=== PATIENT | female | born 1985 | race Caucasian/White ===

== ENCOUNTER 2016-06-10 13:08 | Outpatient (CLI) ==
[2016-03-23 19:04] VITALS: BMI 38.9
[2016-06-10 15:35] LABS: FLU INTERNAL QC INTERNAL QC VALID; RAPID FLU A NEGATIVE (NEGATIVE); RAPID FLU B NEGATIVE (NEGATIVE)
== END 2016-06-10 13:09 | disposition home or self-care (01) ==
LOC: LAB 13:08
PROVIDERS: ATTEND Nurse Practitioner Family
DX: R52 Pain, unspecified (principal); J02.9 Acute pharyngitis, unspecified
CPT/HCPCS: 87804; 87880

== ENCOUNTER 2016-08-15 11:13 | Outpatient (CLI) ==
[2016-03-23 19:04] VITALS: BMI 38.9
--- NOTE | 2016-08-15 11:53 | DI ---
EXAM: Five views of the lumbar spine. History: Lower back pain. Findings / impression: No acute fracture. L5 pars defects possibly bilateral with grade 1 anteroli sthesis of L5 on S1. Moderate degree of facet hypertrophy is seen at L5-S1.
== END 2016-08-15 11:14 | disposition home or self-care (01) ==
LOC: RAD 11:13
PROVIDERS: ATTEND Nurse Practitioner Family
DX: M54.5 Low back pain (principal)

== ENCOUNTER 2016-08-17 14:02 | Outpatient (CLI) ==
[2016-03-23 19:04] VITALS: BMI 38.9
--- NOTE | 2016-08-17 15:41 | MRI ---
EXAM: MRI lumbar spine without IV contrast. DATE: 08/17/2016. HISTORY: Low back pain. TECHNIQUE: Sagittal and axial T1W and T2W sequences of the lumbar spine along with sagittal IR and coronal T2W sequences were obtained using 1.2 Delmis magnet. No IV contrast. COMPARISON: LS spine series 08/15/2016. FINDINGS: There are six dnd-ovj-wahdfic lumbar type vertebra. No previous chest x-ray or T-spine s eries is available to count the number of thoracic vertebra with paired ribs. On previous lumbar sp ine study, the first xmd-vde-pghyxyu lumbar vertebra is apparently assumed to be T12. In keeping wit h the previous numbering system, the first sia-uqu-paegnic vertebra will be referred to as T12. If f eatures thoracic spine series, chest CT, or thoracic MRI confirm twelfth thoracic vertebra exclusive of this wpr-beo-heirnyb vertebra, the numbering system could be altered for future studies. There is no lumbar scoliosis. A 4.4 mm anterior subluxation of L5 relative to L4 is due to facet di sease. A 3 mm anterior subluxation of L5 relative to S1 is due to bilateral L5 pars defects. No ot her subluxation, acute fracture, osseous malignancy, or other pars interarticularis defect is detect ed. Lumbar vertebra are normal in height. Bone marrow signal is normal. Small anterior osteophyte s noted at L1-2 and L5-S1. Disc desiccation and mild disc space narrowing is evident at L1-2 and L4 -5. No sacral fracture or stress reaction is demonstrated. SI joints are unremarkable. Conus medu llaris terminates at T12. Visible spinal cord is normal. No retroperitoneal lymphadenopathy, paraspinal mass, or aortic aneurysm is detected. Paraspinal mus culature is symmetric bilaterally. Visible portions of the liver, spleen, adrenal glands and kidney s are limited by breathing motion artifacts, but reveal no definitive abnormality. Segmental analysis: T11-12: Normal. T12-L1: Transitional T12. Otherwise normal. L1-2: Small bilobed posterior disc bulge causes triangulation of the canal. Each foramen is patent . L2-3: Normal. L3-4: Minor posterior to foraminal disc bulge and minor facet disease cause mild central canal sten osis and minor left foraminal narrowing. L4-5: Mild anterior subluxation of L5, small pseudodisc bulge, and mild facet arthropathy cause mil d/moderate bilateral foraminal narrowing. No central canal stenosis. L5-S1: Mild anterior subluxation of L5, small pseudodisc bulge, bilateral L5 pars defects with hype rtrophic changes, and mild facet arthropathy cause marked bilateral foraminal stenoses with mild com pression of each L5 nerve root in the foramen. No central canal stenosis. IMPRESSIONS: 1. Five classic lumbar vertebra. Transitional T12 vertebra (with lumbar-type transverse processes) . 2. Lumbar spine mild spondylosis, mild facet arthropathy, bilateral L5 pars defects with associated subluxation, and multilevel DDD. 3. Multilevel foraminal stenoses. Each L5 nerve root is compressed in the foramen, and may be sour mani for pain/radiculopathy. 4. Triangulation of canal at L1-2. Mild central stenosis at L3-4.
== END 2016-08-17 14:03 | disposition home or self-care (01) ==
LOC: RAD 14:02
PROVIDERS: ATTEND Nurse Practitioner Family
DX: M54.5 Low back pain (principal); R93.7 Abnormal findings on diagnostic imaging of other parts of musculoskeletal system

== ENCOUNTER 2016-10-13 09:50 | Outpatient (CLI) ==
[2016-03-23 19:04] VITALS: BMI 38.9
--- NOTE | 2016-10-13 10:30 | DI ---
Exam: Eight x-rays of the lumbar spine. Comparison: MRI performed 08/17/2016. Reason for exam: Displacement of the lumbar disc. FINDINGS: No acute fracture. The vertebral body heights are well maintained. There is approximately 6.5 mm of anterior listhesis of L5 on S1 on the lateral image.. On flexion imaging, there is approximately 6.3 mm of anterior listhesis of L5 on S1. On extension imaging, here is approximately 4.7 mm of anterior listhesis of L5 on S1. Mild degenerative disease is seen with osteophyte formation. Impression: 1. Grade 1 anterior listhesis of L5 on S1 with decreased listhesis seen on the extension x-ray. Kiah ging findings suggest motion at this level. 2. No acute fracture is seen.
== END 2016-10-13 09:51 | disposition home or self-care (01) ==
LOC: RAD 09:50
PROVIDERS: ATTEND Nurse Practitioner
DX: M43.10 Spondylolisthesis, site unspecified (principal); M51.26 Other intervertebral disc displacement, lumbar region

== ENCOUNTER 2016-10-17 13:00 | Outpatient (RCR) ==
[2016-03-23 19:04] VITALS: BMI 38.9
--- NOTE | 2016-10-14 16:34 | RS.OPPTEV2 ---
Date of Note: 10/13/16 Visit #: 1 Date of Evaluation: 10/13/16 Payer Source: Medicaid Treatment Diagnosis: Low Back pain, Spondylolisthesis, lumbar disc displacement History of Condition/Mechanism of Injury:: Patient reports increased low back pain and right LE pain since starting a new job in May. States she has had a history her back bothering her, but prolonged standing and walking at work , has significantly increased her back pain. Prior Level of Function.....Patient was independent with: ADL's, Self Care, Work /Vocation, Caregiving, Ambulation/Mobility, Community Integration/Access Functional Limitations: Sleep, Pushing, Pulling, Lifting, Standing, Ambulation Current Subjective/complaints:: Patient reports having pain in her low back and into the right LE. States the right LE feels tight and she feels that she walks with a limp. States she occasionally gets tingling into the right buttock region and down into the back of the leg. She denies any symptoms in the left LE. States walking and standing bother her the most. States she standing and walks for 8 hours shift at work. 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 Patient states she gets very little sleep, due to having to change positions due to back pain. Medical History Medical History: Hypertension, Arthritis Surgical History: Smoking Status: Former smoker Patient's Goals: Her goal is to get relief of back and right LE pain. Pain Assessment - Pain Description Pain Location: low back and right LE. Current Pain Intensity: 7/10 Worst Pain Intensity: 10/10 Functional Outcome Measure Oswestry LBP: 68 - G Codes & Severity Modifier G Codes & Modifier: NA Source of G Code score: NA Observation - Observation Posture: Forward Head, Rounded Shoulders, Increased Lumbar Lordosis Gait - Gait Pattern Gait Comments: Patient ambulates without an assistive device, independently. She demonstrates slight decreased stance on the right LE. - ROM Lumbar Flexion: Hand reach to patellae Sidebending to Left: Reach to Lateral Joint Line Sidebending to Right: Reach to Lateral Joint Line Comments: Patient reports mostly feeling tightness in the back of the legs with lumbar flexion. No reports of increased pain with lumbar extension or lateral sidebend. Bilateral LE AROM is WFL's. - Strength Comments: Right hip flexion 4+/5, all else strength 5/5 throughout. - Special Tests BRANDAN Test: Negative Left, Negative Right SLR Test: Negative Left, Positive Right Seated Dural Stretch Test: Negative Left, Positive Right SI Joint Compression: Negative SI Joint Distraction: Negative Palpation Comments:: Patient reports slight discomfort with central PA's to the mid to lower lumbar spinous processes. Also reports slight tenderness along the lumbar paraspinals, more on the right. Minimal increased muscle tone noted along bilateral lumbar paraspinals. Sensation - Sensation Right Lower Extremity: Intact/Normal Left Lower Extremity: Intact/Normal Additional Comments: Additional Comments: SLR in supine: right 30-35 degrees, left 40-45 degrees. Interventions - Exercise/Activities/Manual Therapy Exercises/Activities: Patient instructed in HS stretch and isometric hip flexion to perform on bilateral LE's. Discussed body mechanics and gave her ideas on decreasing the stress on her back at work. Advised to divide shrimp into smaller amount, so that she doesn't have to lift 50 lbs at a time. Also advised her to use a step stool to put one foot on while standing. Manual Therapy: NA HOME EXERCISE PROGRAM: HS stretch and isometric hip flexion to perform on bilateral LE's. - Charges Total Direct Minutes: 55 mins Total Treatment Time: 55 mins Procedures billed for this date of service:: EVAL Low X 4 Assessment Assessment: Patient presents to therapy with a diagnosis of acquired spondylolisthesis and lumbar disc displacement. She reports difficulty with prolonged standing and walking. Reports right LE radiating symptoms when pain is high. Demonstrates positive SLR in sitting and supine on the right LE. She exhibits very tight HS and slight decreased strength of right hip flexors. She will benefit from exercises to address decreased HS flexibility and strengthening to improve stability along the lumbar spine. Patient Education: Education of diagnosis, Body/Joint mechanics, Home Exercise Program, Home Safety, Activity Modification, Education of Plan of Care Rehab Potential: Good Short Term Goals Goal #1: Right LE symptoms localized to the low back. Goal to be met by: 10/28/16 Goal #2: Tenderness at lumbar spine decreased to minimal. Goal to be met by: 10/28/16 Goal #3: Pain at rest <5/10. Goal to be met by: 10/28/16 Grain Buyer Goals Goal #1: Pt knows HEP and to continue ex's to maintain functional level at D/C. Goal to be met by: 11/23/16 Goal #2: Score on Oswestry LBP scale improved to 30. Goal to be met by: 11/23/16 Goal #3: Pt able to tolerate work and ADL's @ home with minimal LBP. Goal to be met by: 11/23/16 Goal #4: Pt to demonstrate good understanding of back safety and body mechanics. Goal to be met by: 11/23/16 Plan - Treatment to be Provided Procedures: Therapeutic Exercises, Therapeutic Activity, Manual Therapy, Patient Education Modalities: Electrical Stimulation, Ultrasound/Phonophoresis, Cryotherapy, Hot Packs - Treatment Plan Frequency: 3 X week Duration: 4 weeks ORDER # VISITS AND/OR THROUGH DATE: 11/23/16 - Treatment Code (1) Low back pain Qualifiers: Chronicity: unspecified Back pain laterality: unspecified Sciatica presence: unspecified whether sciatica present Qualified Description: Low back pain, unspecified back pain laterality, unspecified chronicity, with sciatica presence unspecified Qualifier Code(s): (M54.5) Low back pain
--- NOTE | 2016-10-17 14:37 | RS.OPPTDN ---
Subjective Date of Note: 10/17/16 Visit #: 2 Date of Evaluation: 10/13/16 Payer Source: Medicaid Treatment Diagnosis: Low Back pain, Spondylolisthesis, lumbar disc displacement Current Subjective/complaints:: Patient reports she has had help with lifting at work and has noticed a reduction in back pain. States she is working on HEP. Pain Assessment - Pain Description Pain Location: low back and right LE. Current Pain Intensity: 5-6/10 prior to treatment - Treatment Modality: Electrical Stim Unattended Parameters/Method Applied: [id number] HVGC to 185-210p.v. with 4 large pads, cross current, to the bilateral lumbar paraspinals with HP. Patient Position: Supine - Heat/Cryotherapy Treatment: Hot Pack ([id number] with Estim ) Interventions - Exercise/Activities/Manual Therapy Exercises/Activities: Assisted with HS stretch, SKTC, and pirifromis stretch. Isometric hip flexion and isometric hip adduction. Bridging. In standing, green theraband for scapular retraction. Reviewed dx, body mechanics, and postural correction. Total minutes of Exercise: 15mins Manual Therapy: NA HOME EXERCISE PROGRAM: HS stretch and isometric hip flexion to perform on bilateral LE's. SKTC and piriformis stretch. Bridging. Blue theraband for scapular retraction/postural correction in standing. - Charges Total Direct Minutes: 15mins Total Treatment Time: 40mins Procedures billed for this date of service:: HP, Estim unattended, EX Assessment: Patient responding well to treatment and reporting a reduction in pain. Patient Education: Education of diagnosis, Body/Joint mechanics, Home Exercise Program, Activity Modification Patient demonstrates compliance with HEP?: Yes Short Term Goals Goal #1: Right LE symptoms localized to the low back. Goal to be met by: 10/28/16 Goal #2: Tenderness at lumbar spine decreased to minimal. Goal to be met by: 10/28/16 Goal #3: Pain at rest <5/10. Goal to be met by: 10/28/16 Progress towards Goal:: Progressing Ep Specialist Goals Goal #1: Pt knows HEP and to continue ex's to maintain functional level at D/C. Goal to be met by: 11/23/16 Goal #2: Score on Oswestry LBP scale improved to 30. Goal to be met by: 11/23/16 Goal #3: Pt able to tolerate work and ADL's @ home with minimal LBP. Goal to be met by: 11/23/16 Progress towards goal: Progressing Goal #4: Pt to demonstrate good understanding of back safety and body mechanics. Goal to be met by: 11/23/16 Progress towards goal: Progressing Plan PLAN OF CARE EXPIRES ON:: 11/23/16 ORDER # VISITS AND/OR THROUGH DATE: 11/23/16 PLAN: Continue Plan of Care
--- NOTE | 2016-10-20 16:07 | RS.CXNS ---
Date of scheduled appointment: 10/20/16 Type: Cancel (Cee left v.m. stating she needed to cancel appointment and would call to reschedule.)
--- NOTE | 2016-11-01 09:38 | RS.QUICKDC ---
Discharge from PT Date of Discharge: 11/01/16 Number of Visits: 2 Reason for Discharge: Patient only attended Evaluation and one regular session. She missed the following appointment and has not contacted this department to reschedule. Please refer to the last daily note for specifics of treatment and goals. Discharge at this time due to lack of attendance.
== END 2016-10-31 ==
PROVIDERS: ATTEND Nurse Practitioner
DX: M43.10 Spondylolisthesis, site unspecified (principal); M51.26 Other intervertebral disc displacement, lumbar region

== ENCOUNTER 2017-01-11 16:12 | Outpatient (CLI) ==
[2016-08-17 14:06] VITALS: BMI 38.9
[2017-01-11 16:18] LABS: FLU INTERNAL QC INTERNAL QC VALID; RAPID FLU A NEGATIVE (NEGATIVE); RAPID FLU B NEGATIVE (NEGATIVE)
== END 2017-01-11 16:13 | disposition home or self-care (01) ==
LOC: LAB 16:12
PROVIDERS: ATTEND General Practice
DX: R68.89 Other general symptoms and signs (principal)
CPT/HCPCS: 87804

== ENCOUNTER 2017-10-20 17:20 | Emergency (ER) ==
[2017-10-20 17:39] VITALS: BP 203/115; TEMP 99.3; BMI 34.9
[2017-10-20] MEDS ORDERED: MORPHINE 4 MG/ML SYRINGE IM STA (18:14)
[2017-10-20] MEDS ORDERED: PHENERGAN 25 MG/ML VIAL IM STA (18:16)
[2017-10-20] MEDS ORDERED: DECADRON 10 MG/ML SDV (RHC/FCC ONLY) IM STA (18:16)
[2017-10-20] MEDS ORDERED: PHENERGAN 25 MG/ML VIAL ONE (18:18)
--- NOTE | 2017-10-20 18:19 | ED.PDOC ---
General ED Provider: Dr. DI LARRY Chief Complaint: Back Pain Stated Complaint: back pain Time Seen by Physician: 17:22 Mode of Arrival: Walk-In Information Source: Patient Exam Limitations: No limitations Primary Care Provider: MANJULA AUGUSTIN Nursing and Triage Documentation Reviewed and Agree: Yes Does patient meet sepsis criteria?: Yes If yes, has appropriate treatment been initiated?: No System Inflammatory Response Syndrome: Not Applicable Sepsis Protocol: For patient's 13 years and over: Temp is 96.8 and below OR 101 and greater Pulse >90 BPM Resp >20/minute Acutely Altered Mental Status Are patient's symptoms suggestive of a new infection, such as: -Pneumonia -Skin, Soft Tissue -Endocarditis -UTI -Bone, Joint Infection -Implantable Device -Acute Abdominal Infection -Wound Infection -Meningitis -Blood Stream Catheter Infection -Unknown Musculoskeletal Complaint Exam - Back Pain Complaint/Exam Mechanism of Injury: Reports: No known trauma Onset/Duration: chronic back pain Symptoms Are: Still present Timing: Intermittent Episodes Lasting: Days Initial Severity: Moderate Current Severity: Moderate Location: Reports: Discrete Character: Reports: Aching Aggravating: Reports: None Alleviating: Reports: None Associated Signs and Symptoms: Denies: Swelling, Redness, Bruising, Fever, Weakness, Numbness, Tingling, Abdominal pain, Flank pain, Bladder incontinence, Bowel incontinence, Weight loss, Pain with weight bearing Related History: Reports: Similar episode TAD Risk Factors: Reports: None AAA Risk Factors: Reports: None Cauda Equina Risk Factors: Reports: None Epidural Abcess Risk Factors: Reports: None Related Surgical History: Reports: None Focal Tenderness: No Paraspinal Muscle Tenderness: No Paraspinal Muscle Spasm: No Scoliosis: No Lordosis: No Kyphosis: No SLR Test: Right Negative, Left Negative Hip Motion Testing Pain: Right Negative, Left Negative Focal Weakness: Present: None Focal Sensory Loss: Present: None Gait: Present: Normal Differential Diagnoses: Strain, Sprain Review of Systems - Review Of Systems Constitutional: Reports: No symptoms Eyes: Reports: No symptoms Ears, Nose, Mouth, Throat: Reports: No symptoms Respiratory: Reports: No symptoms Cardiac: Reports: No symptoms GI: Reports: No symptoms : Reports: No symptoms Musculoskeletal: Reports: Back pain Skin: Reports: No symptoms Neurological: Reports: No symptoms Endocrine: Reports: No symptoms Hematologic/Lymphatic: Reports: No symptoms All Other Systems: Reviewed and Negative Past Medical History - Past Medical History Previously Healthy: Yes Endocrine: Reports: None Cardiovascular: Reports: None, Hypertension Respiratory: Reports: None Hematological: Reports: None Gastrointestinal: Reports: None Genitourinary: Reports: None Neuro/Psych: Reports: None Musculoskeletal: Reports: None Cancer: Reports: None Last Menstrual Period: now - Surgical History General Surgical History: Reports: None - Family History Family History: Reports: None - Social History Smoking Status: Current every day smoker, Light tobacco smoker Hx Substance Use: Yes ([facility]) Alcohol Screening: None Physical Exam - Physical Exam Appearance: Well-appearing, No pain distress, Well-nourished Eyes: JERRELL, EOMI, Conjunctiva clear ENT: Ears normal, Nose normal, Oropharynx normal Respiratory: Airway patent, Breath sounds clear, Breath sounds equal, Respirations nonlabored Cardiovascular: RRR, Pulses normal, No rub, No murmur GI/: Soft, Nontender, No masses, Bowel sounds normal, No Organomegaly Musculoskeletal: Normal strength, ROM intact, No edema, No calf tenderness Skin: Warm, Dry, Normal color Neurological: Sensation intact, Motor intact, Reflexes intact, Cranial nerves intact, Alert, Oriented Psychiatric: Affect appropriate, Mood appropriate Critical Care Note - Critical Care Note Total Time (mins): 0 Course - Course Orders, Labs, Meds: Orders Category Date Time Status Dexamethasone Sod Phosphate [Decadron 10 mg/ml Sdv ([facility] MEDS 10/20/17 18:16 Stat /[facility] Only)] 4 mg IM ONCE STA Morphine Sulfate [Morphine 4 mg/ml Syringe] MEDS 10/20/17 18:14 Stat 4 mg IM ONCE STA Promethazine HCl [Phenergan 25 mg/ml Vial] MEDS 10/20/17 18:16 Stat 25 mg IM ONCE STA Medications Generic Name Dose Route Start Last Admin Trade Name Freq PRN Reason Stop Dose Admin Dexamethasone Sodium Phosphate 4 mg 10/20/17 18:16 Decadron 10 Mg/Ml Sdv (c/[facility] Only) IM 10/20/17 18:17 ONCE STA Discontinued Medications Generic Name Dose Route Start Last Admin Trade Name Freq PRN Reason Stop Dose Admin Morphine Sulfate 4 mg 10/20/17 18:14 Morphine 4 Mg/Ml Syringe IM 10/20/17 18:15 ONCE STA Vital Signs: Temp Pulse Resp BP Pulse Ox 10/20/17 17:22 99.3 F 84 20 203/115 H 98 Departure - Departure Time of Disposition: 19:00 (pt denied being on any meds present tasia and her nurse ) Disposition: HOME SELF-CARE Discharge Problem: Backache Low back pain Qualifiers: Chronicity: acute Back pain laterality: unspecified Sciatica presence: without sciatica Qualified Code(s): M54.5 - Low back pain Instructions: Back Pain (ED), Lower Back Exercises (ED) Condition: Good Pt referred to PMD for follow-up: Yes IPMP verified?: No Additional Instructions: Please call your Family Physician as soon as possible to schedule a follow-up appointment. Allergies/Adverse Reactions: Allergies No Known Allergies Allergy (Verified 02/19/16 14:50) Home Medications: Ambulatory Orders Hydrocodone/Acetaminophen [[place] 10-325 Tablet] 1 each PO Q8HR #5 tablet
[2017-10-20] MEDS ORDERED: DECADRON 4 MG/ML SDV ONE (18:22)
== END 2017-10-20 18:45 | disposition home or self-care (01) ==
LOC: ED 17:20
DX: M54.5 Low back pain (principal); F17.210 Nicotine dependence, cigarettes, uncomplicated
CPT/HCPCS: 96372; 99282

== ENCOUNTER 2017-10-31 12:10 | Outpatient (CLI) ==
--- NOTE | 2017-10-31 20:41 | MRI ---
EXAM: Lumbar spine MRI without contrast. HISTORY: Spinal stenosis. COMPARISON: Lumbar spine radiographs 10/13/2016 and lumbar spine MRI 08/17/2016. TECHNIQUE: Multiplanar, multisequence MR images were acquired lumbar spine without contrast. FINDINGS: Transitional lumbar spinal anatomy is present. There are six non-rib bearing lumbar type vertebra. No prior chest radiographs, thoracic spine radiographs or chest CT is available to allow c ounting of the number of rib-bearing thoracic vertebra. In keeping with prior exams, the first non-r ib-bearing lumbar vertebra will be numbered T12 and the lowest five jmj-yjm-zhnlvzv vertebra, L1 to L 5. Conus medullaris ends at T12-L1 and has normal morphology and signal intensity. Canal diameter is developmentally narrow. There is mild accentuation of the usual lumbar lordosis and there is stable 3 mm retrolisthesis of L4 on L5 and increased 6 mm anterolisthesis of L5 on S1 due to chronic bilate ral L5 pars interarticularis defects. The lumbar vertebra are normal in height and intrinsic bone mar row signal. Ventral spondylosis is present at L1-2 and there is mild irregular concavity of the endp lates at this level with mild disc space narrowing and disc desiccation. There is also disc desiccat ion from L3-4 to L5-S1 and there is mild to moderate disc space narrowing at L5-S1 that is greatest a nteriorly. The partially visualized kidneys are unremarkable. There are no paravertebral masses. L1-2: There is a mild disc bulge and possible small left paracentral disc protrusion that effaces th e left anterior subarachnoid space without central canal stenosis. Neural foramina are patent. L2-3: The intervertebral disc is normal. L3-4: The intervertebral disc is normal. There is minor bilateral facet arthropathy and mild ligamen rehana flavum hypertrophy without significant foraminal stenosis. L3-4: There is a minor disc bulge and small central disc protrusion and annular tear that minimally effaces the ventral thecal sac. Mild bilateral facet arthropathy and ligamentum flavum hypertrophy i s present. There is minor left neural foraminal stenosis and no central canal stenosis. L4-5: There is mild retrolisthesis of L4 on L5 which produces a pseudodisc bulge. Mild to moderate b ilateral hypertrophic facet arthropathy and ligamentum flavum hypertrophy is present which causes mil d to moderate bilateral foraminal stenosis, greater on the left without change. There is no central canal stenosis. L5-S1: There is anterolisthesis of L5 on S1 which has increased compared to previously and there is a small posterior disc bulge that is asymmetric to the right with a broad-based small to moderate bro ad-based right lateral/far lateral disc protrusion that encroaches on the right L5 nerve. Mild bilat eral facet arthropathy and ligamentum flavum hypertrophy is present. There is severe bilateral mary jo inal stenosis with compression of both L5 nerves in the neural foramina. There is no central canal s tenosis. IMPRESSION: 1. Transitional lumbar spinal anatomy. 2. No change mild lumbar degenerative spondylosis, facet arthropathy and mild to moderate broad-base d right lateral/far lateral disc protrusion L5-S1. 3. Increased 6 mm anterolisthesis L5 on S1 due to chronic bilateral L5 pars interarticularis defects . 4. Severe bilateral foraminal stenosis persists at L5-S1 with compression of both L5 nerves.
== END 2017-10-31 12:11 | disposition home or self-care (01) ==
LOC: RAD 12:10
PROVIDERS: ATTEND Family Medicine
DX: M48.00 Spinal stenosis, site unspecified (principal); M46.90 Unspecified inflammatory spondylopathy, site unspecified; R20.0 Anesthesia of skin; M79.1 Myalgia; G54.9 Nerve root and plexus disorder, unspecified

== ENCOUNTER 2017-11-14 14:44 | Outpatient (CLI) ==
--- NOTE | 2017-11-14 16:36 | CT ---
EXAM: CT of the abdomen and pelvis with and without contrast History: Fever. Technique: Multiplanar CT images through the abdomen pelvis were obtained with and without the admin istration of IV contrast Findings: Lung bases are free of consolidation. No acute osseous abnormalities. Bilateral L5 pars defects with grade 1 spondylolisthesis of L5 on S1 measuring about 3 mm. 1 mm calculus within the left kidney. No right renal calculi. No ureteral calculi. Patchy areas of decreased attenuation within the right kidney with adjacent right perinephric stranding. No drainabl e fluid collections. Left kidney is without focal lesion. Adrenal glands are unremarkable. No foca l liver or splenic lesions. No discrete gallstones identified by CT. Pancreas is unremarkable. No dilated loops of bowel. No free air. No ascites. Adnexal structures appear appropriate for patient 's age. Bladder is not well distended. No focal bladder wall thickening. No perirectal inflammatio n. The liver is fatty and enlarged measuring 24 cm in length. Spleen is mildly enlarged measuring 14 .6 cm in length. Impression: 1. Acute right pyelonephritis. 2. Punctate 1 mm nonobstructing right renal calculus. 3. Bilateral L5 pars defects with grade 1 spondylolisthesis of L5 on S1. 4. Hepatosplenomegaly. 5. Hepatic steatosis Critical results communicated to Dr. Alexander at 4:31 p.m. 11/14/2017
[2017-11-15 14:59] VITALS: BMI 34.2
== END 2017-11-14 14:45 | disposition home or self-care (01) ==
LOC: RAD 14:44
PROVIDERS: ATTEND Family Medicine
DX: R50.9 Fever, unspecified (principal); R31.9 Hematuria, unspecified; M54.5 Low back pain; M54.9 Dorsalgia, unspecified; R19.7 Diarrhea, unspecified
CPT/HCPCS: 36415; 80053; 85025; 87086; 87493

== ENCOUNTER 2017-11-15 14:11 | Inpatient (IN) ==
[2017-11-15] MEDS ORDERED: MORPHINE 4 MG/ML SYRINGE IVP PRN (14:45)
[2017-11-15 14:59] VITALS: BMI 34.2
[2017-11-15] MEDS: TYLENOL PO PRN ×2 (15:28→21:41)
[2017-11-15] MEDS: SODIUM CHLORIDE 0.9%-KCL 20 MEQ 1,000 ML IV SCH (15:28)
[2017-11-15] MEDS: PRIMAXIN 500 MG in SODIUM CHLORIDE 100 ML IV SCH ×2 (15:28→17:03)
[2017-11-15] MEDS: MORPHINE 2 MG/ML SYRINGE IVP PRN ×2 (15:42→21:41)
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
[2017-11-15] MEDS ORDERED: NICODERM 14 MG TD STA (17:54)
[2017-11-16] MEDS: PRIMAXIN 500 MG in SODIUM CHLORIDE 100 ML IV SCH ×5 (00:20→23:51)
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
[2017-11-16] MEDS: TYLENOL PO PRN ×4 (03:09→22:49)
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
[2017-11-16] MEDS: SODIUM CHLORIDE 0.9%-KCL 20 MEQ 1,000 ML IV SCH ×2 (04:05→15:23)
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
[2017-11-16] MEDS ORDERED: K-DUR PO STA (08:16)
[2017-11-16] MEDS: NORVASC PO SCH (09:35)
[2017-11-16] MEDS: LOVENOX SUBCUT SCH (09:35)
[2017-11-16] MEDS ORDERED: VALIUM PO STA (15:54)
[2017-11-16] MEDS ORDERED: VALIUM PO PRN (17:36)
--- NOTE | 2017-11-16 17:44 | MRI ---
EXAM: Multi sequence multi planar MRI of the brain without contrast. Coronal and sagittal reformats were performed. HISTORY: Headache TECHNIQUE: Multiplanar, multisequence MRI of the brain without contrast. COMPARISON: CT head from same day. FINDINGS: No evidence of diffusion restriction is seen within the brain. The midline structures incl uding the corpus callosum, pituitary, and cerebellum appear unremarkable. The ventricles are normal in size. When correlating T2 and FLAIR sequences, no suspicious signal is seen within the brain. No acute intracranial hemorrhage is seen. No evidence of midline shift is seen. The bilateral mastoid air cells visualized paranasal sinuses appear clear. IMPRESSION: Unremarkable precontrast MRI of the brain.
--- NOTE | 2017-11-16 17:46 | MRI ---
Exam: MRI cervical spine without contrast History: Headache and neck pain Technique: Multiplanar multisequence MRI cervical spine without contrast FINDINGS: Cervical spine shows normal alignment. Vertebral body height is maintained. Normal marro w and disc signal throughout. Normal cord signal. No immediate paravertebral soft tissue abnormalit ies. Normal foramen magnum and cerebellar tonsils. Normal size and skull base. C1-C2: Normal C2-C3: Normal C3-C4: Normal C4-C5: Normal C5-C6: Normal C6-C7: Normal C7-T1: Normal Impression: 1. Normal MRI cervical spine
[2017-11-16] MEDS: DESYREL PO SCH (22:15)
[2017-11-17] MEDS: MORPHINE 2 MG/ML SYRINGE IVP PRN (03:53)
[2017-11-17] MEDS: SODIUM CHLORIDE 0.9%-KCL 20 MEQ 1,000 ML IV SCH ×2 (04:06→16:12)
[2017-11-17] MEDS: PRIMAXIN 500 MG in SODIUM CHLORIDE 100 ML IV SCH (05:09)
[2017-11-17] MEDS ORDERED: INVANZ 1 GM in SODIUM CHLORIDE 50 ML IV STA (07:13)
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
[2017-11-17] MEDS ORDERED: NAPROSYN PO PRN (08:19)
[2017-11-17] MEDS ORDERED: [UNRECOGNIZED DRUG - OTHER] PO ONE (08:20)
[2017-11-17] MEDS ORDERED: DESYREL PO SCH (09:00)
[2017-11-17] MEDS: NORVASC PO SCH (09:37)
[2017-11-17] MEDS: LOVENOX SUBCUT SCH (09:39)
[2017-11-17] MEDS: VALIUM PO PRN ×2 (09:43→23:28)
[2017-11-17] MEDS: DESYREL PO SCH (21:52)
[2017-11-17] MEDS: CIPRO PO SCH (21:53)
[2017-11-18] MEDS: CIPRO PO SCH (06:13)
[2017-11-18 06:24] VITALS: BP 136/88; TEMP 97.9
[2017-11-18] MEDS: SODIUM CHLORIDE 0.9%-KCL 20 MEQ 1,000 ML IV SCH (07:11)
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
== END 2017-11-18 09:00 | disposition home or self-care (01) | DRG 864 ==
LOC: MEDSURG A 14:11
PROVIDERS: ADMIT Family Medicine; ATTEND Family Medicine
DX: R50.9 Fever, unspecified (principal); R65.10 Systemic inflammatory response syndrome (SIRS) of non-infectious origin without acute organ dysfunction; R51 Headache; D64.9 Anemia, unspecified; I10 Essential (primary) hypertension; E87.6 Hypokalemia; M54.5 Low back pain; W19.XXXA Unspecified fall, initial encounter; Z68.34 Body mass index [BMI] 34.0-34.9, adult
CPT/HCPCS: 36415; 80053; 80306; 85025; 87040

== ENCOUNTER 2017-11-24 09:52 | Outpatient (CLI) | END 2017-11-24 09:53 | disposition home or self-care (01) | LOC: FCC-LAB 09:52 | PROVIDERS: ATTEND Family Medicine | DX: N12 Tubulo-interstitial nephritis, not specified as acute or chronic (principal); D64.9 Anemia, unspecified | CPT/HCPCS: 36415; 80053; 85025 ==

== ENCOUNTER 2017-12-22 12:50 | Outpatient (CLI) ==
--- NOTE | 2017-12-22 14:23 | CT ---
EXAM: CT of the head without contrast History: Syncope and collapse. Comparison: Head CT 11/16/2017 Technique: Multiplanar CT images through the head were obtained without the administration of IV con trast Findings: The visualized paranasal sinuses and mastoid air cells are clear in general. No acute regina varial abnormalities. Intracranially the ventricular and cisternal spaces are normal in size, shape and configuration for a patient of this age. No dominant mass or midline shift. No hydrocephalous. No acute intracranial hemorrhage or abnormal extraaxial fluid collections. Impression: No acute intracranial process
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
== END 2017-12-22 12:51 | disposition home or self-care (01) ==
LOC: RAD 12:50
PROVIDERS: ATTEND Family Medicine
DX: R55 Syncope and collapse (principal); F12.90 Cannabis use, unspecified, uncomplicated; S00.81XA Abrasion of other part of head, initial encounter; S50.02XA Contusion of left elbow, initial encounter
CPT/HCPCS: 36415; 80053; 80306; 84443; 85025

== ENCOUNTER 2017-12-29 12:34 | Outpatient (CLI) ==
--- NOTE | 2018-01-01 11:13 | HOLTER ---
PATIENT INFORMATION AND COMMENTS Attending Physician: DR. HERO HERRERA Indications: SYNCOPE AND COLLAPSE __ Patient Medications: AMLODIPINE BESYLATE, TIZANIDINE PRN __ Pre-procedure Summary: Protocol: Standard Heart Rate Started: 12/29/17 1306 Minimum: 39 BPM Weight: 210 LBS Ended: 12/30/17 1306 Maximum: 153 BPM Height: 66" Duration: 24 HOURS Average: 75 BPM _ INTERPRETATIONS/OBSERVATIONS: 1. BASIC RHYTHM, SINUS RATE 40 BPM TO 150 BPM, AVERAGE 75 BPM 2. RARE PAC'S AND PVC'S 3. NO ST-T WAVE CHANGES FROM BASELINE 4. ACTIVITY LOG NOT MAINTAINED MTDD
== END 2017-12-29 12:35 | disposition home or self-care (01) ==
LOC: CAR 12:34
PROVIDERS: ATTEND Family Medicine
DX: R55 Syncope and collapse (principal)
CPT/HCPCS: 93227